=== PATIENT | male | born 1950 | race Caucasian/White ===

== ENCOUNTER 2018-03-18 11:31 | Inpatient (IN) | payer MEDICARE ==
[2018-03-18 12:10] LABS: Hemoglobin 15.2 g/dL (14.0-18.0); Mean Corpuscular HGB CONC 35.6 g/dL (32.0-36.0); Mean Corpuscular Hemoglobin 31.9 pg (27.0-31.0); Mean Corpuscular Volume 89.8 fl (80.0-94.0); RBC Distribution Width 13.6 % (11.5-14.5); Red Blood Cell (RBC) Count 4.77 mill/uL (4.70-6.10)
[2018-03-18] MEDS ORDERED: Multivitamins, Adult 10 ML, Thiamine HCl 100 MG, Folic Acid 1 MG in Dextrose 5 %-0.45 %... IV SCH (12:30)
[2018-03-18 12:35] LABS: Band 19 % (5-11); Lymphocytes 6 % (21-51); MDiff Complete? YES; Mean Platelet Volume 8.6 fL (7.4-10.4); Monocytes 9 % (0-10); Neutrophil 65 % (42-75); Platelet Count 100 thou/uL (130-400); Reactive Lymphocytes 1 % (0-10)
[2018-03-18 12:36] LABS: ALT (SGPT) 76 U/L (8-55); AST (SGOT) 91 U/L (5-34); Albumin 3.9 g/dL (3.4-4.8); Alkaline Phosphatase 60 U/L (40-150); Anion Gap 14 mmol/L (10-20); BUN (Urea Nitrogen) 20 mg/dL (8.4-25.7); Calc. Creatinine Clearance 0 mL/min (70-130); Calcium 8.7 mg/dL (7.8-10.44); Carbon Dioxide 22 mmol/L (23-31); Chloride 85 mmol/L (98-107); Estimated GFR-MDRD 66; Globulin 3.3 g/dL (2.4-3.5); Glucose 106 mg/dL (80-115); Lipase 53 U/L (8-78); Potassium 4.4 mmol/L (3.5-5.1); Protein, Total 7.2 g/dL (5.8-8.1); Sodium 117 mmol/L (136-145)
--- NOTE | 2018-03-18 12:44 | RAD ---
CHEST 1 VIEW: HISTORY: Chest injury. FINDINGS: Cardiac silhouette magnified by projection. Pulmonary vasculature unremarkable. Mediastinum midline with aortic calcification. Minimal bibasilar atelectasis. No evidence of pneumothorax. Cardiac mo nitor leads overlie the chest. IMPRESSION: No active cardiopulmonary abnormalities are demonstrated. POS: [facility]
[2018-03-18 12:52] LABS: Troponin I Less than 0.010 ng/mL (< 0.028)
[2018-03-18 12:57] LABS: CKMB 9.9 ng/mL (0-6.6)
--- NOTE | 2018-03-18 13:04 | CT ---
CT BRAIN: HISTORY: Trauma, fall, weakness in bedroom. The patient has had multiple falls in the past 6-12 months. FINDINGS: Noncontrast-enhanced CT images of the brain are obtained. There is complete opacification of the right maxillary sinus. The left maxillary sinus is patent. T he frontal ethmoid sinuses and sphenoid sinuses are well aerated. There is opacification of right and left mastoid air cells. There is some fluid seen in the right an d left middle ears. No evidence of intracranial masses, hemorrhages, strokes, or contusions seen. Could the patient's multiple falls be related to middle ear and inner ear pathology? ENT consultatio n is recommended. IMPRESSION: No evidence of acute intracranial pathology. POS: [facility]
[2018-03-18 13:37] LABS: Bilirubin Negative (Negative); Blood, Urine Trace (Negative); Clarity CLEAR (Clear); Glucose, Urine (Dipstick) Negative (Negative); Leukocyte Negative (Negative); Nitrite Negative (Negative); Protein, Urine (Dipstick) 30 mg/dL (Neg-Trace); Specific Gravity, Urine 1.019 (1.002-1.036)
[2018-03-18 13:39] LABS: Bacteria/HPF None Seen HPF (None Seen); Hyaline Casts/LPF 7-10 HYALINE CAST LPF (0-3 Hyaline); Pathc Cast-AUWi Flag 0.87 (0-2.49); Squamous Epithelial 0-3 HPF (0-3); WBC/HPF 0-3 HPF (0-3)
[2018-03-18] MEDS ORDERED: Sodium Chloride 0.9% 1,000 ML IV SCH (15:00)
[2018-03-18] MEDS ORDERED: Labetalol HCl 100 MG/20 ML VIAL SLOW IVP PRN (15:16)
[2018-03-18] MEDS ORDERED: hydrALAZINE 20 MG/ML VIAL SLOW IVP PRN (15:16)
[2018-03-18] MEDS ORDERED: Lorazepam 2 MG/ML VIAL SLOW IVP PRN (15:16)
[2018-03-18] MEDS ORDERED: Famotidine 20 MG TAB PO PRN (15:16)
[2018-03-18] MEDS ORDERED: Ondansetron ODT 4 MG TAB PO PRN (15:16)
[2018-03-18] MEDS ORDERED: Zolpidem Tartrate 5 MG TAB PO PRN (15:16)
[2018-03-18] MEDS ORDERED: traMADol HCl 50 MG TAB PO PRN (15:16)
[2018-03-18] MEDS: Sodium Chloride 0.9% 1,000 ML IV SCH ×2 (16:09→21:18)
--- NOTE | 2018-03-18 16:13 | HP ---
PRIMARY CARE PROVIDER: Dr. Chris Bhakta. Referred to the [facility] by [facility] Emergency Department for weakness and hyponatremia. HISTORY OF PRESENT ILLNESS: The patient states for about a week, he has been weak, anorectic, had di arrhea, multiple falls. He notes no dizziness before the falls, no loss of consciousness. He had na usea and vomiting 3 days ago. No blood in his emesis, no blood in his stools, no melena. PAST MEDICAL HISTORY: Pertinent for hypertension, osteoarthritis. MEDICATIONS: He takes Meloxicam 15 mg a day, Ziac 10/6.25 once a day, lisinopril 40 mg a day. ALLERGIES: He has no allergies. PAST SURGICAL HISTORY: He has had cataract surgery bilaterally and subsequently he had a right eye d etached retina surgery per Dr. Valdez. FAMILY HISTORY: Mother with Parkinson's. Father young in an accident. SOCIAL HISTORY: He is , at bedside. Code status was discussed. is decision maker. Full code status for now. He smokes 1+ pack a day, drinks at least 12 beers a day. REVIEW OF SYSTEMS: General: No loss of consciousness. No fever, sweats, chills. Eyes: No double vision, blurred vision, flashing lights. ENT: No ear pain or drainage. No nasal bleeding. No trou ble swallowing. Cardiac: No chest pain, orthopnea or paroxysmal nocturnal dyspnea. Respirations: Nonproductive cough with no wheezing or asthma. Gastrointestinal: See present illness. Genitourina ry: No hematuria or dysuria. Musculoskeletal: No pain or swelling in his muscles, legs, arms. Martinez rological: No history of strokes, seizures or focal weakness. Psychiatric: No anxiety, depression. Skin: No bruising, bleeding or rash. Heme/Lymph: No tender or swollen lymph nodes in axilla, ingu inal or cervical area. PHYSICAL EXAMINATION: VITAL SIGNS: Blood pressure was 147/83, pulse was 86, respirations 20, temperature 98. GENERAL: He is alert, oriented, cooperative. HEENT: Pupils equal, round, reactive to light. Extraocular movements are intact. Sclerae white. T ympanic membranes are clear. Nose clear. Oral mucous membranes are wet. Dental hygiene is good. NECK: Supple, without jugular venous distention, adenopathy or thyromegaly. CHEST: Clear to auscultation and percussion. HEART: Regular rate and rhythm. First and second heart sounds are clear. There are no appreciated murmurs or gallops. ABDOMEN: Soft. There is no hepatosplenomegaly, no mass, no rebound, no bruits. EXTREMITIES: Reveal no cyanosis, clubbing or edema. PULSES: Carotid, radial, femoral, and dorsalis pedis pulses intact. SKIN: Warm and dry without bruises or rash. HEME/LYMPH: Reveals no tender or swollen lymph nodes in axilla, inguinal or cervical area. NEUROLOGICAL: Cranial nerves II through XII are intact. Deep tendon reflexes symmetric. Toes downg oing. X-RAY FINDINGS: Chest x-ray reveals some atelectasis, minimal, no infiltrate, no cardiomegaly, CHF, reviewed by me. Brain CT, no acute intracranial lesion noted, reviewed by me. LABORATORY DATA: White count 9.0, hemoglobin 15.2 with normocytic normochromic indices, platelet cou nt 100,000. APTT is 26.4. Sodium 117, potassium 4.4, chloride 85, CO2 of 22, , AST 91, ALT 76, alkaline phosphatase normal at 60. CK-MB elevated at 9.9. Troponins are normal. Urine is clear. ADMITTING DIAGNOSES: 1. Hyponatremia. 2. Hypertension. 3. Weakness. 4. Alcohol abuse. 5. Tobacco abuse. 6. Thrombocytopenia. PLAN: 1. Normal saline at 75 mL per an hour. 2. For the next 24 hours, check basic metabolic profile q.6 hours. 3. Urine for sodium, potassium and osmolality. 4. Banana bag daily. 5. Continue Zebeta 10 mg a day and lisinopril 40 mg a day, hold the hydrochlorothiazide and the Ziac . 6. Ativan 1 mg q.4 hours p.r.n. agitation. 7. Nicotine patch 21 mg. 8. Reevaluate frequently.
[2018-03-18] MEDS: Nicotine 21 MG PATCH TD SCH (17:03)
[2018-03-18 17:28] LABS: Potassium, Urine 42.3 mmol/L
[2018-03-18 19:02] LABS: Anion Gap 10 mmol/L (10-20); BUN (Urea Nitrogen) 18 mg/dL (8.4-25.7); Calc. Creatinine Clearance 92 mL/min (70-130); Calcium 8.3 mg/dL (7.8-10.44); Carbon Dioxide 26 mmol/L (23-31); Chloride 87 mmol/L (98-107); Estimated GFR-MDRD 72; Glucose 105 mg/dL (80-115); Potassium 3.3 mmol/L (3.5-5.1); Sodium 120 mmol/L (136-145)
[2018-03-18] MEDS: Acetaminophen 325 MG TAB PO PRN (20:18)
[2018-03-19 00:07] LABS: Anion Gap 12 mmol/L (10-20); BUN (Urea Nitrogen) 16 mg/dL (8.4-25.7); Calc. Creatinine Clearance 108 mL/min (70-130); Calcium 7.9 mg/dL (7.8-10.44); Carbon Dioxide 21 mmol/L (23-31); Chloride 90 mmol/L (98-107); Estimated GFR-MDRD 87; Glucose 111 mg/dL (80-115); Potassium 3.4 mmol/L (3.5-5.1); Sodium 120 mmol/L (136-145)
[2018-03-19 04:37] LABS: Anion Gap 10 mmol/L (10-20); BUN (Urea Nitrogen) 15 mg/dL (8.4-25.7); Calc. Creatinine Clearance 125 mL/min (70-130); Calcium 8.1 mg/dL (7.8-10.44); Carbon Dioxide 23 mmol/L (23-31); Chloride 90 mmol/L (98-107); Estimated GFR-MDRD Greater than 90; Glucose 112 mg/dL (80-115); Potassium 3.4 mmol/L (3.5-5.1); Sodium 120 mmol/L (136-145)
[2018-03-19 05:33] LABS: Band 7 % (5-11); Hemoglobin 13.8 g/dL (14.0-18.0); Lymphocytes 11 % (21-51); MDiff Complete? YES; Mean Corpuscular HGB CONC 36.1 g/dL (32.0-36.0); Mean Corpuscular Hemoglobin 32.5 pg (27.0-31.0); Mean Platelet Volume 8.2 fL (7.4-10.4); Monocytes 17 % (0-10); Neutrophil 65 % (42-75); PLT Morphology Comment Appears Decreased; Platelet Count 95 thou/uL (130-400); RBC Distribution Width 13.5 % (11.5-14.5); Red Blood Cell (RBC) Count 4.24 mill/uL (4.70-6.10)
[2018-03-19 06:27] LABS: Anion Gap 10 mmol/L (10-20); BUN (Urea Nitrogen) 14 mg/dL (8.4-25.7); Calc. Creatinine Clearance 117 mL/min (70-130); Calcium 7.9 mg/dL (7.8-10.44); Carbon Dioxide 23 mmol/L (23-31); Chloride 89 mmol/L (98-107); Estimated GFR-MDRD Greater than 90; Glucose 121 mg/dL (80-115); Potassium 3.3 mmol/L (3.5-5.1)
[2018-03-19] MEDS ORDERED: Potassium Chloride 20 MEQ TAB PO SCH (06:30)
[2018-03-19 06:33] LABS: Sodium 119 mmol/L (136-145)
[2018-03-19] MEDS: Lisinopril 20 MG TAB PO SCH (08:09)
[2018-03-19] MEDS: Bisoprolol Fumarate 5 MG TAB PO SCH (08:10)
[2018-03-19] MEDS: Acetaminophen 325 MG TAB PO PRN (11:15)
--- NOTE | 2018-03-19 12:49 | RAD ---
CHEST 1 VIEWS: History Fever. COMPARISON: 03/18/18. FINDINGS: Cardiac silhouette and pulmonary vasculature are unremarkable. Mediastinum is midline. No confluent airspace consolidation, pneumothorax, or pleural fluid. IMPRESSION: No active cardiopulmonary abnormalities are demonstrated. POS: [facility]
[2018-03-19] MEDS ORDERED: Multivitamins, Adult 10 ML, Folic Acid 1 MG, Thiamine HCl 100 MG in Dextrose 5 %-0.45 %... IV SCH (13:00)
--- NOTE | 2018-03-19 13:29 | PDOC.PN ---
- Subjective Encounter Start Date: 03/19/18 (f/u hyponatremia) Encounter Start Time: 13:27 Subjective: Pt denies any concerns - reports he felt sweaty a while ago. - Objective Resuscitation Status: Resuscitation Status FULL:Full Resuscitation Vital Signs & Weight: Vital Signs (12 hours) Temp Pulse Resp BP BP Pulse Ox 03/19/18 12:00 135/69 03/19/18 11:11 101.5 F H 72 16 135/69 94 L 03/19/18 08:09 154/88 H 03/19/18 08:00 99.5 F 82 16 154/88 H 94 L 03/19/18 07:16 99.5 F 82 16 154/88 H 94 L 03/19/18 04:05 99.7 F H 89 18 115/71 115/71 95 Weight Weight 211 lb 1.6 oz I&O: 03/18/18 03/19/18 03/20/18 06:59 06:59 06:59 Intake Total 3675 Output Total 950 Balance 2725 Result Diagrams: 03/19/18 03:37 03/19/18 05:36 Phys Exam - Physical Examination Constitutional: NAD HEENT: PERRLA Respiratory: no wheezing, no rales, no rhonchi Cardiovascular: RRR, no significant murmur Gastrointestinal: soft, non-tender, no distention, positive bowel sounds Musculoskeletal: no edema Neurological: non-focal, moves all 4 limbs Psychiatric: normal affect Skin: no rash Dx/Plan (1) Hyponatremia Code(s): E87.1 - HYPO-OSMOLALITY AND HYPONATREMIA Status: Acute (2) Hypertension Code(s): I10 - ESSENTIAL (PRIMARY) HYPERTENSION Status: Chronic Qualifiers: Hypertension type: essential hypertension Qualified Code(s): I10 - Essential (primary) hypertension (3) Weakness Code(s): R53.1 - WEAKNESS Status: Acute (4) Alcohol abuse Code(s): F10.10 - ALCOHOL ABUSE, UNCOMPLICATED Status: Chronic (5) Tobacco abuse Code(s): Z72.0 - TOBACCO USE Status: Chronic (6) Thrombocytopenia Code(s): D69.6 - THROMBOCYTOPENIA, UNSPECIFIED Status: Acute - Plan * Sodium level about the same - will d/c banana bag as it is mixed in 0.45% saline. Will also d/c IVF and oral fluid restriction. Hyponatremia likely beer potomania * continue alcohol withdrawal protocol * continue home bp meds * thrombocytopenia - monitor, hold pharm dvt prophy continue nicotine replacement PT for weakness start oral mvi, thiamine, folate dvt prophy - scd's gi prophy - not indicated code status full.
[2018-03-19] MEDS: Nicotine 21 MG PATCH TD SCH (16:57)
[2018-03-19 17:23] LABS: Anion Gap 12 mmol/L (10-20); BUN (Urea Nitrogen) 13 mg/dL (8.4-25.7); Calc. Creatinine Clearance 114 mL/min (70-130); Calcium 8.3 mg/dL (7.8-10.44); Carbon Dioxide 25 mmol/L (23-31); Chloride 89 mmol/L (98-107); Estimated GFR-MDRD Greater than 90; Glucose 99 mg/dL (80-115); Potassium 3.7 mmol/L (3.5-5.1); Sodium 122 mmol/L (136-145)
--- NOTE | 2018-03-19 17:51 | PDOC.EVN ---
Event Note - Event Note Event Note: Pt with most recent sodium 122 after d/c both 1/2 NS banana bag and NS maint fluids. Is fluid restricted to 1.5 L per day and encouraged to eat more solid food. Likely was hypovolemic hyponatremia on admission due to diarrhea, however now appears euvolemic. Requested consult by Dr. Marcelo with goal of avoiding too rapid of a correction. Next BMP at 22:00 tonight.
[2018-03-19 22:40] LABS: Anion Gap 11 mmol/L (10-20); BUN (Urea Nitrogen) 14 mg/dL (8.4-25.7); Calc. Creatinine Clearance 112 mL/min (70-130); Calcium 8.1 mg/dL (7.8-10.44); Carbon Dioxide 24 mmol/L (23-31); Chloride 92 mmol/L (98-107); Estimated GFR-MDRD Greater than 90; Glucose 118 mg/dL (80-115); Potassium 3.6 mmol/L (3.5-5.1); Sodium 123 mmol/L (136-145)
--- NOTE | 2018-03-20 01:46 | CON ---
DATE OF CONSULTATION: 03/19/2018 NEPHROLOGY CONSULTATION REASON FOR CONSULTATION: Hyponatremia. HISTORY OF PRESENT ILLNESS: This is a 68-year-old gentleman with a history of alcohol abuse presente d to the hospital for weakness and hyponatremia. The patient's sodium was 119. After hydration, the patient's sodium improved to 122. I was consulted. The patient denies headache, numbness, tingling or weakness. Denies any nausea, vomiting or chest pain. PAST MEDICAL HISTORY: Significant for hypertension and osteoarthritis. FAMILY HISTORY: Negative for ESRD. HOME MEDICATIONS: List reviewed. HOSPITAL MEDICATIONS: Reviewed. PAST SURGICAL HISTORY: Significant for detached retina. REVIEW OF SYSTEMS: A 15-point review of systems was performed and negative except as noted above. G ENERAL: Weakness. HEAD: Headache. NECK: No swelling or lumps. NOSE: No epistaxis or discharge. EYES: No diplopia or pain. RESPIRATORY: Dyspnea. CARDIOVASCULAR: Chest pain. GASTROINTESTINAL : Nausea. /CLINICAL ASST: Hematuria. MUSCULOSKELETAL: No joint pain. NEUROPSYCHIATIC SYSTEMS: No suici hadley ideation. No ideation. SKIN: Denies any rash or ulcer. CONSTITUTIONAL: No fever or chills. ALLERGIES: Reviewed. PHYSICAL EXAMINATION: GENERAL: On exam, this patient is awake, alert. VITAL SIGNS: Afebrile, pulse 83, breathing 16, blood pressure 155/77. GENERAL APPEARANCE AND MENTAL STATUS: Fair. HEAD/NECK: Normocephalic. Atraumatic. EYES: EOMI. No deformity. EARS: Clear. No ulcers. NOSE: Intact. No lesions. MOUTH: Clear. No discharge. THROAT: Clear. No exudate. LUNGS: Clear. No crackles. CARDIAC: S1, S2. No rub. ABDOMEN: Benign. BS+. GENITALIA/RECTUM: Christianson absent. BACK/EXTREMITIES: Edema 0+ ulcer. NEUROLOGICAL: Alert and motor intact. SKIN: Rash-bruise. LYMPHATICS: Edema-ulcer. LABORATORY DATA: Labs showed sodium 133, creatinine 0.4. ASSESSMENT AND RECOMMENDATIONS: 1. Chronic kidney disease, stage 2, stable. 2. Hypokalemia, stable. 3. Hyponatremia, most likely because of syndrome of inappropriate antidiuretic hormone secretion. C an start 800 mL fluid restriction, no indication for hypertonic saline. Follow magnesium in the morn ing.
[2018-03-20 05:17] LABS: ALT (SGPT) 70 U/L (8-55); AST (SGOT) 62 U/L (5-34); Albumin 3.1 g/dL (3.4-4.8); Alkaline Phosphatase 57 U/L (40-150); Anion Gap 12 mmol/L (10-20); BUN (Urea Nitrogen) 13 mg/dL (8.4-25.7); Bilirubin, Total 0.9 mg/dL (0.2-1.2); Calc. Creatinine Clearance 129 mL/min (70-130); Calcium 8.1 mg/dL (7.8-10.44); Carbon Dioxide 21 mmol/L (23-31); Chloride 92 mmol/L (98-107); Estimated GFR-MDRD Greater than 90; Globulin 2.4 g/dL (2.4-3.5); Glucose 112 mg/dL (80-115); Potassium 3.8 mmol/L (3.5-5.1); Protein, Total 5.5 g/dL (5.8-8.1); Sodium 121 mmol/L (136-145)
--- NOTE | 2018-03-20 08:26 | PDOC.PN ---
- Subjective Encounter Start Date: 03/20/18 Encounter Start Time: 08:28 Patient seen and examined following admission for hyponatremia. Seems back to his baseline and has no complaints. Has had some trouyble ambulating though- PT/ OT consulted. He has no complaints today and reports feeling "pretty good". No acute events overnight. - Objective Resuscitation Status: Resuscitation Status FULL:Full Resuscitation MAR Reviewed: Yes Vital Signs & Weight: Vital Signs (12 hours) Temp Pulse Resp BP BP Pulse Ox 03/20/18 07:47 98.0 F 82 22 H 154/79 H 95 03/20/18 04:00 98 F 72 22 H 046/77 146/77 H 93 L 03/20/18 00:59 97.6 F 83 22 H 131/66 95 03/20/18 00:00 131/66 Weight Weight 210 lb 12.8 oz I&O: 03/19/18 03/20/18 03/21/18 06:59 06:59 06:59 Intake Total 3675 1200 Output Total 950 1950 Balance 2725 -750 Result Diagrams: 03/19/18 03:37 03/20/18 04:15 Phys Exam - Physical Examination Constitutional: NAD HEENT: moist MMs, sclera anicteric, oral pharynx no lesions Neck: supple, full ROM Respiratory: no wheezing, no rales, no rhonchi, clear to auscultation bilateral Cardiovascular: RRR, no significant murmur, no rub Gastrointestinal: soft, non-tender, no distention, positive bowel sounds Musculoskeletal: no edema, pulses present Neurological: non-focal, moves all 4 limbs Psychiatric: A&O x 3 Skin: no rash, normal turgor Dx/Plan (1) Hyponatremia Code(s): E87.1 - HYPO-OSMOLALITY AND HYPONATREMIA Status: Acute Comment: Stable. Patient asymptomatic. Likelyy 2/2 potomanina. (2) Thrombocytopenia Code(s): D69.6 - THROMBOCYTOPENIA, UNSPECIFIED Status: Chronic Comment: Likely 2/2 chronic EtOH abuse. Stable and no signs of acute bleeding. SCDs in place. (3) Weakness Code(s): R53.1 - WEAKNESS Status: Chronic Comment: PT/OT consulted. Will f/ u discharge recs. CM consulted as well. (4) Alcohol abuse Code(s): F10.10 - ALCOHOL ABUSE, UNCOMPLICATED Status: Chronic Comment: Counseled on cessation. No signs of withdrawal. (5) Hypertension Code(s): I10 - ESSENTIAL (PRIMARY) HYPERTENSION Status: Chronic Qualifiers: Hypertension type: essential hypertension Qualified Code(s): I10 - Essential (primary) hypertension Comment: Fairly well controlled. Continue lisinopril. (6) Tobacco abuse Code(s): Z72.0 - TOBACCO USE Status: Chronic Comment: Counseled on cessation. - Plan cont current plan of care, PT/OT, manager social media, out of bed/ambulate, DVT proph w/SCDs * . Review of Systems - Medications/Allergies Allergies/Adverse Reactions: Allergies Allergy/AdvReac Type Severity Reaction Status Date / Time No Known Allergies Allergy Verified 11/02/16 10:01 Medications: Current Medications Acetaminophen (Tylenol) 650 mg PO Q4H PRN PRN Reason: Headache/Fever or Pain Last Admin: 03/19/18 11:15 Dose: 650 mg Bisoprolol Fumarate (Zebeta) 10 mg PO DAILY [facility] Last Admin: 03/19/18 08:10 Dose: 10 mg Famotidine (Pepcid) 20 mg PO BIDPRN PRN PRN Reason: Heartburn or Indigestion Folic Acid (Folvite) 1 mg PO DAILY [facility] Hydralazine HCl (Apresoline) 10 mg SLOW IVP Q4H PRN PRN Reason: Systolic BP > 180 Iron/Minerals/Multivitamins (Theragran M) 1 tab PO DAILY [facility] Labetalol HCl (Normodyne) 20 mg SLOW IVP Q4H PRN PRN Reason: Systolic BP > 180 Lisinopril (Zestril) 40 mg PO QAM [facility] Last Admin: 03/19/18 08:09 Dose: 40 mg Lorazepam (Ativan) 1 mg SLOW IVP Q4H PRN PRN Reason: Anxiety/Agitation Nicotine (Nicoderm Patch) 21 mg TD Q24HR [facility] Last Admin: 03/19/18 16:57 Dose: 21 mg Ondansetron HCl (Zofran Odt) 4 mg PO Q6H PRN PRN Reason: Nausea/Vomiting Sodium Chloride (Flush - Normal Saline) 10 ml IVF Q12HR [facility] Last Admin: 03/19/18 20:03 Dose: 10 ml Sodium Chloride (Flush - Normal Saline) 10 ml IVF PRN PRN PRN Reason: Saline Flush Thiamine HCl (Thiamine) 100 mg PO HS [facility] Last Admin: 03/19/18 20:02 Dose: 100 mg Tramadol HCl (Ultram) 50 mg PO Q4H PRN PRN Reason: Moderate Pain (4-6) Zolpidem Tartrate (Ambien) 5 mg PO HSPRN PRN PRN Reason: Insomnia
[2018-03-20] MEDS: Bisoprolol Fumarate 5 MG TAB PO SCH (08:39)
[2018-03-20] MEDS: Lisinopril 20 MG TAB PO SCH (08:39)
[2018-03-20] MEDS: Folic Acid 1 MG TAB PO SCH (08:39)
[2018-03-20] MEDS: Multivitamin W/ Minerals 1 TAB PO SCH (08:40)
[2018-03-20 09:01] VITALS: BMI 27.8
[2018-03-20] MEDS: Nicotine 21 MG PATCH TD SCH (16:54)
[2018-03-20] MEDS: Acetaminophen 325 MG TAB PO PRN (18:29)
--- NOTE | 2018-03-21 03:53 | PRG ---
DATE OF SERVICE: 03/20/2018 SUBJECTIVE: The patient was seen and examined at bedside and overnight events noted. The patient denies any shortness of breath or chest pain or palpitation. No history of nausea or vomiting or diarrhea or fever or chills or cramps. OBJECTIVE: GENERAL: This is a well-built male, in no apparent distress. VITAL SIGNS: Temperature 97.9, pulse 68, respiratory rate 20, blood pressure 151/80. HEENT: Atraumatic, normocephalic. Oral mucosa is moist. NECK: Supple. CARDIOVASCULAR: S1, S2 heard. Rate and rhythm regular. RESPIRATORY: Clear to auscultation. GASTROINTESTINAL: Abdomen is soft. MUSCULOSKELETAL: No tenderness, no edema. DERMATOLOGIC: No skin rash. NEUROLOGIC: Alert and awake and oriented x3. No focal neurologic deficits. Moving all the extremities. PSYCHIATRIC: Mood and affect normal. LABORATORY DATA: Sodium is 121, potassium is 3.8, BUN is 13, creatinine is 0.7. ASSESSMENT AND PLAN: 1. Hyponatremia, most likely beer drinkers potomania. The patient and family admit to drink more than 12 pack of beer per day. Advised to limit beer as well as fluid intake and have a good protein intake. Need close monitoring of sodium as outpatient and encouraged family to have close outpatient followup. 2. Hypochloremia. 3. Edema, controlled. 4. Hypertension, stable. 5. History of alcohol abuse. 6. Chronic kidney disease stage 2. Plan is to continue fluid restriction. We will check labs from primary care physician to monitor chronic labs to evaluate his past sodium levels. We will follow. NEERAJ
[2018-03-21 05:12] LABS: Hemoglobin 13.5 g/dL (14.0-18.0); Mean Corpuscular HGB CONC 34.7 g/dL (32.0-36.0); Mean Corpuscular Hemoglobin 31.5 pg (27.0-31.0); Mean Corpuscular Volume 90.9 fl (80.0-94.0); Mean Platelet Volume 8.8 fL (7.4-10.4); Platelet Count 106 thou/uL (130-400); RBC Distribution Width 13.5 % (11.5-14.5); Red Blood Cell (RBC) Count 4.28 mill/uL (4.70-6.10); White Blood Cell (WBC) Count 6.5 thou/uL (4.8-10.8)
[2018-03-21 05:15] LABS: Anion Gap 11 mmol/L (10-20); BUN (Urea Nitrogen) 17 mg/dL (8.4-25.7); Calc. Creatinine Clearance 124 mL/min (70-130); Calcium 8.1 mg/dL (7.8-10.44); Carbon Dioxide 22 mmol/L (23-31); Chloride 93 mmol/L (98-107); Estimated GFR-MDRD Greater than 90; Glucose 116 mg/dL (80-115); Potassium 3.7 mmol/L (3.5-5.1); Sodium 122 mmol/L (136-145)
[2018-03-21] MEDS: Folic Acid 1 MG TAB PO SCH (08:38)
[2018-03-21] MEDS: Multivitamin W/ Minerals 1 TAB PO SCH (08:38)
[2018-03-21] MEDS: Bisoprolol Fumarate 5 MG TAB PO SCH (08:39)
[2018-03-21] MEDS: Lisinopril 20 MG TAB PO SCH (08:39)
[2018-03-21 13:35] VITALS: BP 129/79
[2018-03-21 13:36] VITALS: TEMP 97.9
--- NOTE | 2018-03-21 15:24 | DIS ---
DATE OF ADMISSION: 03/18/2018 DATE OF DISCHARGE: 03/21/2018 DISCHARGE DIAGNOSES: Chronic alcohol abuse, hyponatremia, thrombocytopenia, generalized weakness, hy pertension, tobacco abuse. HISTORY OF PRESENT ILLNESS AND HOSPITAL COURSE: Mr. Fredi Johnson is a 68-year-old male with a histor y of chronic alcohol abuse who was sent to [facility] Emergency Room for generalized weakness and h yponatremia. The patient states that for about a week, he has felt weak, very frequent diarrhea and multiple falls. No episodes of dizziness, no further falls and no loss of consciousness. He had katia sea and vomiting 3 days before he presented to the hospital. There is no history of hematemesis, hem atochezia. No melena. His lab showed a serum sodium of 117. He was admitted for hyponatremia, init ially started on normal saline and his serum sodium was monitored closely and was eventually reviewed and placed on fluid restriction with improvement in his serum sodium and mental status. He received physical therapy while in admission as well and recommended sending him home with home leather stamper apy. Of note, the patient continues to drink at least 12 cans of beer daily and continues to smoke c igarettes. There is no evidence of active bleeding on admission and his thrombocytopenia was stable while in the hospital. He was placed on SCD. DISCHARGE MEDICATIONS: Zebeta 10 mg daily, folic acid 1 mg daily, multivitamin 1 tab daily, nicotin e patch 21 mg transdermally every 24 hours, thiamine 100 mg at bedtime. PHYSICAL EXAMINATION: He was examined on the day of discharge. VITAL SIGNS: Temperature 98.3, pulse 77, respiratory rate 22, oxygen saturation 93% on room air, blo od pressure 114/69. GENERAL: Not in acute distress. He is lying comfortably in bed. HEENT: Not pale, anicteric. Moist mucous membranes. NECK: Supple. Full range of movement. CARDIOVASCULAR: S1 and S2 only with regular rate and rhythm. No murmurs, rubs or gallops. RESPIRATORY: Vesicular breath sounds bilaterally. No wheezes, rales or rhonchi. ABDOMEN: Soft, nontender, nondistended. No bowel sounds. Normoactive. EXTREMITIES: No edema. NEUROLOGIC: Alert and well oriented. No focal deficit. SKIN: Warm, dry and well-perfused. No rashes or lesions. PSYCHIATRIC: Alert and well oriented. No focal deficit. LABORATORY DATA: Sodium 122, potassium 3.7, chloride 93, carbon dioxide 22, BUN 11, creatinine 0.7, glucose 116, calcium 8.1. WBC 6.5, hemoglobin 13.5, platelet count 106,000. IMAGING: Brain CT without contrast, no evidence of acute intracranial pathology. Chest x-ray, no ac vivian cardiopulmonary abnormality was demonstrated. CONSULTS: Nephrology. CONDITION ON DISCHARGE: Stable and improved. PROCEDURES: None. DIET: Heart healthy. CARE GOALS: To follow up with his primary care physician within 1 week of discharge. ACTIVITY: To resume as tolerated and as directed by PT/OT. DISCHARGE TIME: 55 minutes including chart review and documentation.
== END 2018-03-21 12:45 | disposition home health service (06) | DRG 641 ==
LOC: ERS 11:31 → T4-B 13:17
PROVIDERS: ADMIT Internal Medicine; ATTEND Internal Medicine
DX: E87.1 Hypo-osmolality and hyponatremia (principal); D69.6 Thrombocytopenia, unspecified; F17.210 Nicotine dependence, cigarettes, uncomplicated; F10.20 Alcohol dependence, uncomplicated; R19.7 Diarrhea, unspecified; M19.90 Unspecified osteoarthritis, unspecified site; E87.8 Other disorders of electrolyte and fluid balance, not elsewhere classified; Z91.81 History of falling; E87.6 Hypokalemia; I12.9 Hypertensive chronic kidney disease with stage 1 through stage 4 chronic kidney disease, or unspecified chronic kidney disease; N18.2 Chronic kidney disease, stage 2 (mild)
CPT/HCPCS: 36415; 70450; 71045; 71046; 80048; 80053; 81003; 81015; 82553; 83690; 83735; 83935; 84133; 84300; 84443; 84484; 85025; 85027; 85730; 87040; 87086; 93005; 96361; 96365; A4216; G8978-GP-CK; G8979-GP-CI; J3411; J7042

== ENCOUNTER 2018-05-24 09:51 | Outpatient (CLI) | payer MEDICARE | END 2018-05-24 09:52 | disposition home or self-care (01) | LOC: BICCT 09:51 | PROVIDERS: ATTEND Otolaryngology | DX: H92.12 Otorrhea, left ear (principal); H90.6 Mixed conductive and sensorineural hearing loss, bilateral; H65.492 Other chronic nonsuppurative otitis media, left ear; H74.8X3 Other specified disorders of middle ear and mastoid, bilateral | CPT/HCPCS: 70480 ==